=== PATIENT | male | born 1990 | race Caucasian/White ===

== ENCOUNTER 2017-05-30 15:26 | Emergency (ER) | payer OTHER, BC ==
[~2017-05-30] VITALS: Ht 182.9 cm; Wt 97.7 kg
[2017-05-30] MEDS ORDERED: MOTRIN800 MG PO (17:07)
[2017-05-30 17:44] VITALS: BP 122/90
== END 2017-05-30 17:44 | disposition home or self-care (01) ==
LOC: EME 15:26
DX: S80.12XA Contusion of left lower leg, initial encounter (principal); S80.812A Abrasion, left lower leg, initial encounter; V23.4XXA Motorcycle driver injured in collision with car, pick-up truck or van in traffic accident, initial encounter; Y92.410 Unspecified street and highway as the place of occurrence of the external cause
CPT/HCPCS: 73590; 99281; 99284